=== PATIENT | male | born 1935 ===

== ENCOUNTER 2022-11-11 15:21 | Outpatient (REF) | payer MEDICARE, SELFPAY ==
[2022-11-11 15:15] LABS: HCT 38.8 % (40.0-50.0); HGB 12.8 g/dL (13.5-17.5); MCH 31.4 pg (27.0-33.0); MCV 95 fL (80-95); MPV 9.9 fL (8.0-11.0); Platelet Count 176 10^3/uL (130-400); RBC 4.07 10^6/uL (4.36-5.78); RDW 13.7 % (11.8-14.1); RDW-SD 48.1 fL; WBC 3.88 10^3/uL (4.4-10.8)
--- OUTSIDE RECORDS SUMMARY | 2022-11-11 15:27 | XMS_ITS | Continuity of Care Document ---
Author Name Unknown Organization [facility] Address Unknown Care Team Providers Care Psychological Assistant Name Role Phone Fina CHEN Primary Care Physician DORIS RASMUSSEN Unavailable Unavailable Encounter Date(s): 06/15/22 - 06/15/22 [facility] [address] [place] [address]- [place] Discharge Disposition: Home or Self Care Attending Physician: Fina CHEN MD Admitting Physician: Fina CHEN MD Allergies, Adverse Reactions, Alerts Substance Reaction Severity Status diltiazem Active Seasonal Allergies Active Medications Aleve 220 mg, Oral, q8hr, 0 Refill(s) Start Date: 12/15/11 Status: Ordered aspirin 81 mg oral tablet 81 mg = 1 tab(s), Oral, Daily, 0 Refill(s) Start Date: 10/14/11 Status: Ordered atenolol 50 mg oral tablet 50 mg = 1 tab(s), Oral, Daily Start Date: 10/14/11 Status: Ordered Coumadin 5 mg oral tablet 5 mg = 1 tab(s), Oral, Daily, exc on tue and tuesday takes 2.5mg po daily as of 11/01/11 Start Date: 10/14/11 Status: Ordered Dyazide 1 cap(s), Oral, Daily, 0 Refill(s) Start Date: 12/15/11 Status: Ordered famotidine 20 mg oral tablet 20 mg = 1 tab(s), Oral, Daily Start Date: 10/14/11 Status: Ordered Lipitor 10 mg oral tablet 10 mg = 1 tab(s), Oral, Daily, # 30 tab(s), 0 Refill(s), other reason (Rx) Start Date: 10/15/11 Status: Ordered Problem List Condition Effective Dates Status Health Status Inform ant arthritis(Confirmed) Active AF(Confirmed) Active BPH [Benign prostatic hypertrophy](Confirmed) Active Depressive disorder NEC(Confirmed) Active EDEMA(Confirmed) Active gout(Confirmed) Active sleep apena(Confirmed) Active Hearing loss NOS(Confirmed) Active Hyperlipidemia NOS(Confirmed) Active Mitral regurgitation(Confirmed) Active Murmur of heart, undiagnosed(Confirmed) Active Nephrolithiasis NOS(Confirmed) Active Obesity NOS [mild](Confirmed) Active Procedures Procedure Date Related Diagnosis Body Site Status colonoscopy 03/28/18 Completed colonoscopy 01/30/13 Completed Left heart catherization 1 03/2010 Completed Stress Echo 2 2007 Completed Afib 3 1995 Completed Cardioversion, elective, she ctrical conversion of arrhythmia; external Completed inguinal hernia repair 4 Completed MENISCUS REPAIR Completed S/P arthroscopy Completed tonsilectomy Completed 150% to 70% nonobstructive lesion in the LAD, nonflow-limiting luminal irregularities in the other vessels. 2heart rate 121, no abnormalities, no increased pulmponary hypertension 3cardioverted x2 (3rd cardioversion unsuccessful 1997) 4x 5 laparascopic (2 on R; 3 on L) Results Laboratory List Name Date .Estimated Glomerular Filtration Rate Auto Differential 06/15/22 CBC Auto Diff reflex Manual Diff (CBC W/ AUTO DIFF) 06/15/22 Comprehensive Metabolic Panel (COMPREHEN SIVE METABOLIC PANEL) 06/15/22 Hemoglobin A1c (HGB A1C) 06/15/22 Lipid Panel (LIPID PROFILE) 06/15/22 Microalbumin Level Urine (URINE MICROALB UMIN RANDOM) 06/15/22 Most recent to oldest [Reference Range]: 1 AGAP 10 *NA* (06/15/22 10:57 AM) LDL 33 mg/dL *NA* (06/15/22 10:57 AM) Excretion Ratio [<=29.9 mg/gm Cr] 23.2 m g/gm Cr (06/15/22 10:57 AM) Ldl/Hdl 0.5 mg/dL *NA* (06/15/22 10:57 AM) Chol/Trig 1.20 mg/dL *NA* (06/15/22 10:57 AM) VLDL 21 mg/dL *NA* (06/15/22 10:57 AM) A/G Ratio 1.1 *NA* (06/15/22 10:57 AM) BUN/Creat Ratio 29 *NA* (06/15/22 10:57 AM) RBC [4.50-5.90 x10(6)/mcL] 4.19 x10(6)/m cL *LOW* (06/15/22 10:57 AM) RDW [11.5-14.5 %] 14.2 % (06/15/22 10:57 AM) Sodium Level [136-145 mmol/L] 139 mmol/L (06/15/22 10:57 AM) Total Protein [6.4-8.2 gm/dL] 7.4 gm/dL (06/15/22 10:57 AM) Trig 104 mg/dL *NA* (06/15/22 10:57 AM) AST [15-37 IU/L] 25 IU/L (06/15/22 10:57 AM) Bili Total [0.20-1.00 mg/dL] 0.70 mg/dL (06/15/22 10:57 AM) Chol 122 mg/dL *NA* (06/15/22 10:57 AM) CO2 [21-32 mmol/L] 28 mmol/L (06/15/22 10:57 AM) Urine Creatinine. 168.0 mg/dL *NA* (06/15/22 10:57 AM) Albumin Level [3.4-5.0 gm/dL] 3.9 gm/dL (06/15/22 10:57 AM) Alk Phos [45-117 unit/L] 76 unit/L (06/15/22 10:57 AM) ALT [13-61 IU/L] 14 IU/L (06/15/22 10:57 AM) Hct [41.0-53.0 %] 41.4 % (06/15/22 10:57 AM) HDL 68 mg/dL *NA* (06/15/22 10:57 AM) Hgb [13.9-16.3 gm/dL] 13.4 gm/dL *LOW* (06/15/22 10:57 AM) Hgb A1c [4.2-5.6 %] 5.6 % (06/15/22 10:57 AM) MCH [26.0-34.0 pg] 32.0 pg (06/15/22 10:57 AM) MCHC [31.0-37.0 gm/dL] 32.4 gm/dL (06/15/22 10:57 AM) MCV [80-100 fL] 99 fL (06/15/22 10:57 AM) MPV [9.2-12.7 fL] 9.8 fL (06/15/22 10:57 AM) Glucose Level [74-106 mg/dL] 95 mg/dL (06/15/22 10:57 AM) Platelet [150-350 x10(3)/mcL] 181 x10(3) /mcL (06/15/22 10:57 AM) Potassium Level [3.5-5.1 mmol/L] 4.1 mmo l/L (06/15/22 10:57 AM) WBC [4.5-11.0 x10(3)/mcL] 4.7 x10(3)/mcL (06/15/22 10:57 AM) BUN [7-18 mg/dL] 29 mg/dL *HI* (06/15/22 10:57 AM) Calcium Level [8.5-10.1 mg/dL] 8.6 mg/dL (06/15/22 10:57 AM) Chloride [98-107 mmol/L] 105 mmol/L (06/15/22 10:57 AM) eGFR AA >60 mL/min/1.73 m2 *NA* (06/15/22 10:57 AM) eGFR RIGOBERTO >60 mL/min/1.73 m2 *NA* (06/15/22 10:57 AM) Urine Microalbumin 3.9 mg/dL *NA* (06/15/22 10:57 AM) Neutrophil Absolute [1.50-7.80 x10(3)/mc L] 2.98 x10(3)/mcL (06/15/22 10:57 AM) Lymphocyte Absolute [1.10-4.80 x10(3)/mc L] 1.06 x10(3)/mcL *LOW* (06/15/22 10:57 AM) Monocyte Absolute 0.47 x10(3)/mcL *NA* (06/15/22 10:57 AM) Eosinophil Absolute 0.15 x10(3)/mcL *NA* (06/15/22 10:57 AM) Basophil Absolute 0.03 x10(3)/mcL *NA* (06/15/22 10:57 AM) Imm Gran Absolute 0.01 /mcL *NA* (06/15/22 10:57 AM) NRBC % [0.0-0.2 %] 0.0 % (06/15/22 10:57 AM) Osmol Calculated 283 mOsm/kg *NA* (06/15/22 10:57 AM) Eosinophil Auto [1.0-4.0 %] 3.2 % (06/15/22 10:57 AM) Immature Granulocyte Auto 0 % *NA* (06/15/22 10:57 AM) Lymphocyte Auto [24.0-44.0 %] 22.6 % *LOW* (06/15/22 10:57 AM) Monocyte Auto [2.0-11.0 %] 10.0 % (06/15/22 10:57 AM) Neutrophil Auto [31.0-76.0 %] 63.4 % (06/15/22 10:57 AM) Basophil Auto [0.0-2.0 %] 0.6 % (06/15/22 10:57 AM) Creatinine [0.6-1.3 mg/dL] 1.0 mg/dL (06/15/22 10:57 AM) Social History Social History Type Response Smoking Status Former smoker Sex Male Care Team Care Team Personnel Name: Fina CHEN MD Position: Community Physician Member Role: Primary Care Physician Address: Address: [place] [place] [address]- Care Team Related Persons Name: ELENA PLASCENCIA Address: Home [address] [place] [address] [phone]
[2022-11-11 15:31] LABS: ALT 16 U/L (16-63); AST 35 U/L (15-37); Alkaline Phosphatase 83 U/L (46-116); Anion Gap 6.2 mmol/L (3-11); BUN 38 mg/dL (7-18); Bilirubin, Total 0.7 mg/dL (0.2-1.0); CO2 27.8 mmol/L (21.0-32.0); CREATININE 1.1 mg/dL (0.70-1.30); Calcium 8.8 mg/dL (8.5-10.1); Chloride 105 mmol/L (98-107); Estimated GFR 65.79 (mL/min/1.73m2); Glucose 98 mg/dL (74-106); Potassium 4.2 mmol/L (3.5-5.1); Sodium 139 mmol/L (136-145); Total Protein 7.2 g/dL (6.4-8.2)
== END 2022-11-11 15:22 | disposition home or self-care (01) ==
LOC: NCHCN 15:21
PROVIDERS: Visit Provider Family Medicine
DX: I10 Essential (primary) hypertension (principal); I25.10 Atherosclerotic heart disease of native coronary artery without angina pectoris; I48.91 Unspecified atrial fibrillation
CPT/HCPCS: 80053; 85027

== ENCOUNTER 2023-07-14 18:59 | Outpatient (REF) | payer MEDICARE, OTHER, SELFPAY ==
--- OUTSIDE RECORDS SUMMARY | 2023-07-14 19:01 | XMS_ITS | CCD ---
Author Name Unknown Address [address] [place] [address] [id number] Organization Unknown Address [address] [place] [address] [phone] Care Team Providers Care Corporate Travel Expert Name Role Phone OSIRIS CLARK Attending Physician [phone] LILLY JOHNSON Er Physician [phone] LEVI Terrell Registered Nurse [phone] Vital Signs Vital Sign Value Unit Date/Time Recent/Initial ? BMI (Body Mass Index) 28.73 kg/m^2 11/21/2021 11: 12 Initial VS Weight Measured 178 lbs 11/21/2021 11:12 Ini tial VS Height 66 in 11/21/2021 11:12 Initial VS BSA (Body Surface Area) 1.94 m^2 11/21/2021 1 1:12 Initial VS BP Systolic 101 mmHg 11/21/2021 11:12 Initial VS BP Diastolic 68 mmHg 11/21/2021 11:12 Initia l VS Respiratory Rate 16 bpm 11/21/2021 11:12 In itial VS Heart Rate 88 bpm 11/21/2021 11:12 Initial VS O2 % BldC Oximetry 96 % 11/21/2021 11:12 Initial VS Body Temperature 35.3 degrees 11/21/2021 11:12 In itial VS BP Systolic 107 mmHg 11/21/2021 12:42 Most Re cent VS BP Diastolic 64 mmHg 11/21/2021 12:42 Most R ecent VS Respiratory Rate 16 bpm 11/21/2021 12:[address] Recent VS Heart Rate 75 bpm 11/21/2021 12:42 Most Rec ent VS O2 % BldC Oximetry 96 % 11/21/2021 12:42 Most Recent VS Allergies Allergy Code Allergy Type Reaction Status LISINOPRIL 25040 Drug allergy COUGH Active AVAPRO 678646 Drug allergy SWELLING Active Procedures Unknown or Not Available. History of Immunizations Immunization Code Date Tdap 115 11/21/2021 Problems Problem Code Start Date Resolved Date Status Atrial fibrillation 44727040 Activ e Results Unknown or Not Available. Active Medications Medications Administered During Visit Medication Dose Units Frequency Route Date/Time of Last Dose TETANUS/DIPHT/PERTUS SYR:0.5ML(BOOSTRIX) 0.5 ML X1 IM 11/22/19 12:26 Encounters Encounter Diagnosis Diagnosis Code Start Date Contusion of left lower leg, initial encounter S 8012XA 11/21/2021 Social History Smoking Status Code Start Date End Date Never smoker [id number] Patient Decision Aids Unknown or Not Available. Discharge Instructions You were admitted to [facility] on 11/21/2021 11:04 with a principal diagnosis of Contusion of left lower leg, initial encounter You were discharged from [facility] on 11/21/2021 12:48 Should you have any questions prior to discharge, please contact a member of your healthcare team. If you have left the hospital and have any questions, please contact your primary care physician. Chief Complaint and Reason For Visit Chief Complaint Date of Onset LEG WOUND Function Status Unknown or Not Available. Plan of Care Unknown or Not Available. Referral/Transition of Care Unknown or Not Available.
--- OUTSIDE RECORDS SUMMARY | 2023-07-14 19:01 | XMS_ITS | CCD ---
Author Name Unknown Address [address] [place] [address] [id number] Organization Unknown Address [address] [place] [address] [id number] Care Team Providers Care Cash Register Mechanic Name Role Phone QUE IYER Attending Physician [phone] Vital Signs Unknown or Not Available. Allergies Allergy Code Allergy Type Reaction Status LISINOPRIL 15822 Drug allergy COUGH Active AVAPRO 916679 Drug allergy SWELLING Active Procedures Unknown or Not Available. History of Immunizations Immunization Code Date Tdap 115 11/21/2021 Problems Problem Code Start Date Resolved Date Status Atrial fibrillation 97086047 Activ e Results COMPREHENSIVE METABOLIC PANE L (CMP) - Collect Date/Time: 02/01/2023 09:58 Test Name Code Test Result Test Units Test Ref Rang e GLUCOSE 2345-7 103 mg/dL L=70 H=116 BUN 3094-0 26 mg/dL L=6 H=25 CREATININE 2160-0 0.94 mg/dL L=0.67 H=1.17 SODIUM SERUM 2951-2 141 mmol/L L=136 H=145 POTASSIUM SERUM 2823-3 4.1 mmol/L L=3.4 H=5 .2 CHLORIDE SERUM 2075-0 105 mmol/L L=96 H=110 CARBON DIOXIDE (CO2) 2028-9 27 mmol/L L=22 H=34 ANION GAP 47511-9 8.9 mmol/L CALCIUM SERUM 92529-4 8.8 mg/dL L=8.2 H=10. 2 BILIRUBIN TOTAL 1975-2 0.6 mg/dL L=0.0 H=1 .3 ALK. PHOS. 6768-6 74 U/L L=46 H=116 SGOT (AST) 1920-8 31 U/L L=15 H=37 SGPT (ALT) 1742-6 15 U/L L=12 H=78 TOTAL PROTEIN 2885-2 7.0 gm/dL L=6.0 H=8.0 ALBUMIN 1751-7 3.7 gm/dL L=3.4 H=5.0 AGE 87 years eGFR (non-Afr.Amer.) 85346-8 76 mL/min eGFR (Afr-Honduran) 42003-3 92 mL/min CBC W/ DIFFERENTIAL* - [facility] ct Date/Time: 02/01/2023 09:58 Test Name Code Test Result Test Units Test Ref Rang e WBC 6690-2 3.83 th/cmm L=5.00 H=10.00 NEUT % 58.6 % L=40.0 H=80.0 LYMPH % 24.5 % L=10.0 H=50.0 MONO % 18733-5 9.9 % L=2.0 H=12.0 EOS % 5.7 % L=0.0 H=8.0 BASO % 1.0 % L=0.0 H=3.0 IG % 2514-8 0.3 % L=0.0 H=1.1 NRBC % 83128-4 0.0 % L=0.0 H=0.0 NEUT abs count 751-8 2.2 th/cmm L=1.6 H=8. 4 LYMPH abs count 731-0 0.9 th/cmm L=1.5 H=4 .0 MONO abs count 742-7 0.4 th/cmm L=0.2 H=1. 0 EOS abs count 711-2 0.2 th/cmm L=0.0 H=0.5 BASO abs count 704-7 0.0 th/cmm L=0.0 H=0. 2 IG abs count 49914-8 0.0 th/cmm L=0.0 H=0.1 NRBC abs count 07309-0 0.0 mil/cmm L=0.0 H=0. 0 RBC 789-8 4.03 mil/cmm L=4.30 H=6.20 HEMOGLOBIN 718-7 12.3 gm/dL L=13.0 H=17.0 HEMATOCRIT 4544-3 39 % L=45 H=52 MCV 787-2 96 fL L=82 H=92 MCH 785-6 30.5 pg L=27.0 H=31.0 MCHC 786-4 31.9 % L=32.0 H=36.0 RDW-SD 788-0 46.5 fL L=39.0 H=49.0 PLATELET COUNT 777-3 157 th/cmm L=150 H=45 0 Active Medications Medication Code Dose Units Frequency Route Modificatio n Start Date/Time Cephalexin 500MG Oral Capsule 524995 1 CAPSULE THREE TIMES A DAY ORAL 11/21/2021 12:08 Prescription Detail TAKE 1 CAPSULE ORAL THREE TIMES A DAY Medications Administered During Visit Unknown or Not Available. Encounters Encounter Diagnosis Diagnosis Code Start Date Nutritional anemia, unspecified D539 02/01/2023 Social History Smoking Status Code Start Date End Date Never smoker [id number] Patient Decision Aids Unknown or Not Available. Discharge Instructions You were admitted to [facility] on 02/01/2023 09:51 with a principal diagnosis of Nutritional anemia, unspecified You had the following tests done:CBC W/ DIFFERENTIAL*COMPREHENSIVE METABOLIC PANEL (CMP) You were discharged from [facility] on 02/01/2023 09:51 Should you have any questions prior to discharge, please contact a member of your healthcare team. If you have left the hospital and have any questions, please contact your primary care physician. Chief Complaint and Reason For Visit Unknown or Not Available. Function Status Unknown or Not Available. Plan of Care Unknown or Not Available. Referral/Transition of Care Unknown or Not Available.
--- OUTSIDE RECORDS SUMMARY | 2023-07-14 19:01 | XMS_ITS | CCD ---
Author Name Unknown Address [address] [place] [address] [id number] Organization Unknown Address [address] [place] [address] [phone] Care Team Providers Care Cuff Runner Name Role Phone DOROTEO ARGUETA Attending Physician [phone] Vital Signs Unknown or Not Available. Allergies Allergy Code Allergy Type Reaction Status LISINOPRIL 75883 Drug allergy COUGH Active AVAPRO 719561 Drug allergy SWELLING Active Procedures Unknown or Not Available. History of Immunizations Immunization Code Date Tdap 115 11/21/2021 Problems Problem Code Start Date Resolved Date Status Atrial fibrillation 89409945 Activ e Results BASIC METABOLIC PANEL (BMP) - Collect Date/Time: 11/23/2021 11:04 Test Name Code Test Result Test Units Test Ref Rang e GLUCOSE 2345-7 112 mg/dL L=70 H=116 BUN 3094-0 41 mg/dL L=6 H=25 CREATININE 2160-0 1.08 mg/dL L=0.67 H=1.17 SODIUM SERUM 2951-2 133 mmol/L L=136 H=145 POTASSIUM SERUM 2823-3 4.4 mmol/L L=3.4 H=5 .2 CHLORIDE SERUM 2075-0 98 mmol/L L=96 H=110 CARBON DIOXIDE (CO2) 2028-9 28 mmol/L L=22 H=34 ANION GAP 40534-5 7.1 mmol/L CALCIUM SERUM 52736-7 8.2 mg/dL L=8.2 H=10. 2 AGE 86 years eGFR (non-Afr.Amer.) 96107-1 65 mL/min eGFR (Afr-Libyan) 03760-8 79 mL/min Active Medications Medication Code Dose Units Frequency Route Modificatio n Start Date/Time Cephalexin 500MG Oral Capsule 625440 1 CAPSULE THREE TIMES A DAY ORAL 11/21/2021 12:08 Prescription Detail TAKE 1 CAPSULE ORAL THREE TIMES A DAY Medications Administered During Visit Unknown or Not Available. Encounters Encounter Diagnosis Diagnosis Code Start Date Osteoporosis 04160072 11/23/2021 Social History Smoking Status Code Start Date End Date Never smoker 242198913 Patient Decision Aids Unknown or Not Available. Discharge Instructions You were admitted to [facility] on 11/23/2021 10:43 with a principal diagnosis of Other osteoporosis without current pathological fracture You had the following tests done:BASIC METABOLIC PANEL (BMP) You were discharged from [facility] on 11/23/2021 10:43 Should you have any questions prior to [...]
--- OUTSIDE RECORDS SUMMARY | 2023-07-14 19:02 | XMS_ITS | CCD ---
Author Name Unknown Address [address] [place] [address] [id number] Organization Unknown Address [address] [place] [address] [phone] Care Team Providers Care Art History Instructor Name Role Phone QUE IYER Attending Physician [phone] Vital Signs Unknown or Not Available. Allergies Unknown or Not Available. Procedures Unknown or Not Available. History of Immunizations Immunization Code Date Tdap 115 11/21/2021 Problems Problem Code Start Date Resolved Date Status Atrial fibrillation 23640277 Activ e Results CBC W/ DIFFERENTIAL* - [facility] ct Date/Time: 06/30/2021 11:10 Test Name Code Test Result Test Units Test Ref Rang e WBC 6690-2 4.02 th/cmm L=5.00 H=10.00 NEUT % 61.5 % L=40.0 H=80.0 LYMPH % 22.6 % L=10.0 H=50.0 MONO % 20062-9 10.7 % L=2.0 H=12.0 EOS % 4.2 % L=0.0 H=8.0 BASO % 1.0 % L=0.0 H=3.0 IG % 2514-8 0.0 % L=0.0 H=1.1 NRBC % 77860-8 0.0 % L=0.0 H=0.0 NEUT abs count 751-8 2.5 th/cmm L=1.6 H=8. 4 LYMPH abs count 731-0 0.9 th/cmm L=1.5 H=4 .0 MONO abs count 742-7 0.4 th/cmm L=0.2 H=1. 0 EOS abs count 711-2 0.2 th/cmm L=0.0 H=0.5 BASO abs count 704-7 0.0 th/cmm L=0.0 H=0. 2 IG abs count 90252-7 0.0 th/cmm L=0.0 H=0.1 NRBC abs count 71910-4 0.0 mil/cmm L=0.0 H=0. 0 RBC 789-8 3.88 mil/cmm L=4.30 H=6.20 HEMOGLOBIN 718-7 12.6 gm/dL L=13.0 H=17.0 HEMATOCRIT 4544-3 39 % L=45 H=52 MCV 787-2 100 fL L=82 H=92 MCH 785-6 32.5 pg L=27.0 H=31.0 MCHC 786-4 32.6 % L=32.0 H=36.0 RDW-SD 788-0 46.5 fL L=39.0 H=49.0 PLATELET COUNT 777-3 142 th/cmm L=150 H=45 0 Active Medications Medication Code Dose Units Frequency Route Modificatio n Start Date/Time Cephalexin 500MG Oral Capsule 787864 1 CAPSULE THREE TIMES A DAY ORAL 11/21/2021 12:08 Prescription Detail TAKE 1 CAPSULE ORAL THREE TIMES A DAY Medications Administered During Visit Unknown or Not Available. Encounters Encounter Diagnosis Diagnosis Code Start Date Nutritional anemia 46782808 06/30/2021 Social History Smoking Status Code Start Date End Date Never smoker 495687446 Patient Decision Aids Unknown or Not Available. Discharge Instructions You were admitted to [facility] on 06/30/2021 10:28 with a principal diagnosis of Nutritional anemia, unspecified You had the following tests done:CBC W/ DIFFERENTIAL* You were discharged from [facility] on 06/30/2021 10:28 Should you have any questions prior to [...]
--- OUTSIDE RECORDS SUMMARY | 2023-07-14 19:02 | XMS_ITS | CCD ---
Author Name Unknown Address [address] [place] [address] [id number] Organization Unknown Address [address] [place] [address] [phone] Care Team Providers Care Caddie Name Role Phone WANG VICENTE Attending Physician [phone] WANG VICENTE Rounding (Secondary) Physician [phone] Vital Signs Unknown or Not Available. Allergies Allergy Code Allergy Type Reaction Status LISINOPRIL 94106 Drug allergy COUGH Active AVAPRO 629398 Drug allergy SWELLING Active Procedures Unknown or Not Available. History of Immunizations Immunization Code Date Tdap 115 11/21/2021 Problems Problem Code Start Date Resolved Date Status Atrial fibrillation 11083486 Activ e Results Unknown or Not Available. Active Medications Medication Code Dose Units Frequency Route Modificatio n Start Date/Time Cephalexin 500MG Oral Capsule 070742 1 CAPSULE THREE TIMES A DAY ORAL 11/21/2021 12:08 Prescription Detail TAKE 1 CAPSULE ORAL THREE TIMES A DAY Medications Administered During Visit Unknown or Not Available. Encounters Unknown or Not Available. Social History Smoking Status Code Start Date End Date Never smoker 873251674 Patient Decision Aids Unknown or Not Available. Discharge Instructions You were admitted to [facility] You were discharged from [facility] Should you have any questions prior to [...]
--- OUTSIDE RECORDS SUMMARY | 2023-07-14 19:03 | XMS_ITS | CCD ---
Author Name Unknown Address [address] [place] [address] [id number] Organization Unknown Address [address] [place] [address] [phone] Care Team Providers Care Lace Roller Name Role Phone TACO DICKSON Attending Physician [phone] Vital Signs Unknown or Not Available. Allergies Unknown or Not Available. Procedures Unknown or Not Available. History of Immunizations Immunization Code Date Tdap 115 11/21/2021 Problems Problem Code Start Date Resolved Date Status Atrial fibrillation 79085696 Activ e Results BUN (UREA NITROGEN) - [facility] t Date/Time: 03/31/2021 10:32 Test Name Code Test Result Test Units Test Ref Rang e BUN 3094-0 28 mg/dL L=6 H=25 CREATININE SERUM - Collect D ate/Time: 03/31/2021 10:32 Test Name Code Test Result Test Units Test Ref Rang e CREATININE 2160-0 0.83 mg/dL L=0.67 H=1.17 AGE 86 years eGFR (non-Afr.Amer.) 18334-6 88 mL/min eGFR (Afr-Botswanan) 94760-7 107 mL/min Active Medications Medication Code Dose Units Frequency Route Modificatio n Start Date/Time Cephalexin 500MG Oral Capsule 215348 1 CAPSULE THREE TIMES A DAY ORAL 11/21/2021 12:08 Prescription Detail TAKE 1 CAPSULE ORAL THREE TIMES A DAY Medications Administered During Visit Unknown or Not Available. Encounters Encounter Diagnosis Diagnosis Code Start Date Primary malignant neoplasm of prostate 55254499 03/31/2021 Social History Smoking Status Code Start Date End Date Never smoker 535274835 Patient Decision Aids Unknown or Not Available. Discharge Instructions You were admitted to [facility] on 03/31/2021 10:30 with a principal diagnosis of Malignant neoplasm of prostate You had the following tests done:BUN (UREA NITROGEN)CREATININE SERUM You were discharged from [facility] on 03/31/2021 10:30 Should you have any questions prior to [...]
--- OUTSIDE RECORDS SUMMARY | 2023-07-14 19:03 | XMS_ITS | CCD ---
Author Name Unknown Address [address] [place] [address] [phone] Organization Unknown Address [address] [place], [place] [id number] Care Team Providers Care Home Health Billing Specialist Name Role Phone HERNAN PORRAS Attending Physician [phone] Vital Signs Unknown or Not Available. Allergies Allergy Code Allergy Type Reaction Status PENICILLINS (CLASS) 20741 Drug allergy Act linda LISINOPRIL 30165 Drug allergy INTOLERANT Active polyester {Clinical monitori ng unavailable} 0 Allergy to substance RASH Active CODEINE 2670 Drug allergy Active METOPROLOL 6918 Drug allergy UNKNOWN Active OXYCODONE 7804 Drug allergy Active SULFA (sulfonamide) 0 Drug allergy Act linda DILTIAZEM 3443 Drug allergy Active POLYESTER LINER 0 Drug allergy Active TAMSULOSIN 22543 Drug allergy Active Procedures Unknown or Not Available. History of Immunizations Unknown or Not Available. Problems Problem Code Start Date Resolved Date Status Atrial fibrillation 38908329 Activ e Coronary artery disease 49806227 A ctive Personal history of cancer of prostate 750376489 Active Diverticulosis 993346180 Active Restless leg syndrome 95072352 Act linda Obstructive sleep apnea 78151617 A ctive Hypercholesterolemia 45454552 Acti ve Loss of memory 05369214 Active Actinic keratosis 052001588 Active Chronic low back pain 903396935 Act linda Cervical disc disease 748867363 Act linda Cholelithiasis 565208528 Active Gout 65606974 Active Obesity 540914498 Active Hard of hearing 06725402 Active L2 fracture, sequela 017914977 Acti ve High cholesterol 49328183 Active STEMI 328497515 Active Results Unknown or Not Available. Active Medications Unknown or Not Available. Medications Administered During Visit Unknown or Not Available. Encounters Encounter Diagnosis Diagnosis Code Start Date Encounter for other specified aftercare Z5189 03/24/2023 Social History Smoking Status Code Start Date End Date Never smoker 401013437 Patient Decision Aids Unknown or Not Available. Discharge Instructions You were admitted to [facility] on 03/24/2023 13:44 with a principal diagnosis of Encounter for other specified aftercare You were discharged from [facility] on 03/24/2023 10:44 Should you have any questions prior to [...]
--- OUTSIDE RECORDS SUMMARY | 2023-07-14 19:03 | XMS_ITS | CCD ---
Author Name Unknown Address [address] [place] [address] [id number] Organization Unknown Address [address] [place] [address] [id number] Care Team Providers Care President Financial Institution Name Role Phone HARRY BALL MD Attending Physician [phone] Vital Signs Unknown or Not Available. Allergies Unknown or Not Available. Procedures Unknown or Not Available. History of Immunizations Immunization Code Date Tdap 115 11/21/2021 Problems Problem Code Start Date Resolved Date Status Atrial fibrillation [id number] Activ e Results Unknown or Not Available. Active Medications Medication Code Dose Units Frequency Route Modificatio n Start Date/Time Cephalexin 500MG Oral Capsule 875454 1 CAPSULE THREE TIMES A DAY ORAL 11/21/2021 12:08 Prescription Detail TAKE 1 CAPSULE ORAL THREE TIMES A DAY Medications Administered During Visit Unknown or Not Available. Encounters Encounter Diagnosis Diagnosis Code Start Date Unspecified fracture of T5-T 6 vertebra, initial encounter for closed fracture [id number] 03/31/2021 Social History Smoking Status Code Start Date End Date Never smoker 562267515 Patient Decision Aids Unknown or Not Available. Discharge Instructions You were admitted to [facility] on 03/31/2021 00:02 with a principal diagnosis of Unspecified fracture of T5-T6 vertebra, initial encounter for closed fracture You were discharged from [facility] on 03/31/2021 00:02 Should you have any questions prior to [...]
--- OUTSIDE RECORDS SUMMARY | 2023-07-14 19:04 | XMS_ITS | CCD ---
Author Name Unknown Address [address] [place] [address] [id number] Organization Unknown Address [address] [place], [place] [id number] Care Team Providers Care Animal Anatomist Name Role Phone HERNAN PORRAS Attending Physician [phone] Vital Signs Unknown or Not Available. Allergies Allergy Code Allergy Type Reaction Status PENICILLINS (CLASS) 47968 Drug allergy Act linda LISINOPRIL 97901 Drug allergy INTOLERANT Active METOPROLOL 6918 Drug allergy UNKNOWN Active OXYCODONE 7804 Drug allergy Active SULFA (sulfonamide) 0 Drug allergy Act linda Procedures Unknown or Not Available. History of Immunizations Unknown or Not Available. Problems Problem Code Start Date Resolved Date Status Atrial fibrillation 62873962 Activ e Coronary artery disease 73907775 A ctive Personal history of cancer of prostate 786878687 Active Diverticulosis 879336345 Active Restless leg syndrome 38802652 Act linda Obstructive sleep apnea 86217132 A ctive Hypercholesterolemia 54770035 Acti ve Loss of memory 30967378 Active Actinic keratosis 747791465 Active Chronic low back pain 495154732 Act linda Cervical disc disease 673377994 Act linda Cholelithiasis 411960101 Active Gout 49044630 Active Obesity 477119031 Active Hard of hearing 85333873 Active L2 fracture, sequela 929259635 Acti ve High cholesterol 36163929 Active STEMI 433242820 Active Results Unknown or Not Available. Active Medications Unknown or Not Available. Medications Administered During Visit Unknown or Not Available. Encounters Encounter Diagnosis Diagnosis Code Start Date Aftercare [id number] 11/17/2022 Social History Smoking Status Code Start Date End Date Never smoker 852431561 Patient Decision Aids Unknown or Not Available. Discharge Instructions You were admitted to on 11/17/2022 11:19 with a principal diagnosis of Encounter for other specified aftercare You were discharged from on 11/17/2022 17:22 Should you have any questions prior to [...]
--- OUTSIDE RECORDS SUMMARY | 2023-07-14 19:04 | XMS_ITS | CCD ---
Author Name Unknown Address [address] [place] [address] [id number] Organization Unknown Address [address] [place], [place] [phone] Care Team Providers Care Safety Equipment Tester Name Role Phone EMERSON FERREIRA Attending Physician [phone] Vital Signs Vital Sign Value Unit Date/Time Recent/Initial ? BMI (Body Mass Index) 32.89 kg/m^2 12/21/2022 13: 20 Initial VS Weight Measured 210 lbs 12/21/2022 13:20 Ini tial VS Height 67 in 12/21/2022 13:20 Initial VS BSA (Body Surface Area) 2.12 m^2 12/21/2022 1 3:20 Initial VS BP Systolic 109 mmHg 12/27/2022 10:08 Initial VS BP Diastolic 68 mmHg 12/27/2022 10:08 Initia l VS Respiratory Rate 19 bpm 12/27/2022 10:08 In itial VS Heart Rate 60 bpm 12/27/2022 10:08 Initial VS O2 % BldC Oximetry 94 % 12/27/2022 10:08 Initial VS Body Temperature 36.3 degrees 12/27/2022 10:08 In itial VS Allergies Allergy Code Allergy Type Reaction Status PENICILLINS (CLASS) 47570 Drug allergy Act linda LISINOPRIL 38309 Drug allergy INTOLERANT Active polyester {Clinical monitori ng unavailable} 0 Allergy to substance RASH Active CODEINE 2670 Drug allergy Active METOPROLOL 6918 Drug allergy UNKNOWN Active OXYCODONE 7804 Drug allergy Active SULFA (sulfonamide) 0 Drug allergy Act linda DILTIAZEM 3443 Drug allergy Active POLYESTER LINER 0 Drug allergy Active TAMSULOSIN 13723 Drug allergy Active Procedures Procedure Code Procedure Type Date Slitting, Prepuce, Dorsal/La teral (Sep Proc); Except 55727 CPT 12/27/2022 History of Immunizations Unknown or Not Available. Problems Problem Code Start Date Resolved Date Status Atrial fibrillation 03870872 Activ e Coronary artery disease 43803863 A ctive Personal history of cancer of prostate 652869120 Active Diverticulosis 382830105 Active Restless leg syndrome 39114268 Act linda Obstructive sleep apnea 25859818 A ctive Hypercholesterolemia 99452899 Acti ve Loss of memory 92586359 Active Actinic keratosis 597615440 Active Chronic low back pain 839319636 Act linda Cervical disc disease 401740897 Act linda Cholelithiasis 404694791 Active Gout 03695789 Active Obesity 732726285 Active Hard of hearing 69904432 Active L2 fracture, sequela 985900730 Acti ve High cholesterol 38862490 Active STEMI 267114256 Active Results BASIC METABOLIC PANEL (BMP) - Collect Date/Time: 12/27/2022 08:38 Test Name Code Test Result Test Units Test Ref Rang e GLUCOSE 2345-7 106 mg/dL L=70 H=116 BUN 3094-0 27 mg/dL L=6 H=25 CREATININE 2160-0 0.93 mg/dL L=0.67 H=1.17 SODIUM SERUM 2951-2 135 mmol/L L=136 H=145 POTASSIUM SERUM 2823-3 3.6 mmol/L L=3.4 H=5 .2 CHLORIDE SERUM 2075-0 101 mmol/L L=96 H=110 CARBON DIOXIDE (CO2) 2028-9 28 mmol/L L=22 H=34 ANION GAP 47799-9 5.9 mmol/L CALCIUM SERUM 20887-6 8.6 mg/dL L=8.2 H=10. 2 AGE 87 years eGFR (non-Afr.Amer.) 34154-6 77 mL/min eGFR (Afr-Kosovan) 23030-8 93 mL/min CBC W/ DIFFERENTIAL* - Colle ct Date/Time: 12/27/2022 08:38 Test Name Code Test Result Test Units Test Ref Rang e WBC 6690-2 4.39 th/cmm L=5.00 H=10.00 NEUT % 29.1 % L=40.0 H=80.0 LYMPH % 23.7 % L=10.0 H=50.0 MONO % 54705-8 45.8 % L=2.0 H=12.0 EOS % 0.7 % L=0.0 H=8.0 BASO % 0.2 % L=0.0 H=3.0 IG % 2514-8 0.5 % L=0.0 H=1.1 NRBC % 52061-8 0.0 % L=0.0 H=0.0 NEUT abs count 751-8 1.3 th/cmm L=1.6 H=8. 4 LYMPH abs count 731-0 1.0 th/cmm L=1.5 H=4 .0 MONO abs count 742-7 2.0 th/cmm L=0.2 H=1. 0 EOS abs count 711-2 0.0 th/cmm L=0.0 H=0.5 BASO abs count 704-7 0.0 th/cmm L=0.0 H=0. 2 IG abs count 81076-0 0.0 th/cmm L=0.0 H=0.1 NRBC abs count 57056-8 0.0 mil/cmm L=0.0 H=0. 0 RBC 789-8 3.98 mil/cmm L=4.30 H=6.20 HEMOGLOBIN 718-7 11.8 gm/dL L=13.0 H=17.0 HEMATOCRIT 4544-3 36 % L=45 H=52 MCV 787-2 91 fL L=82 H=92 MCH 785-6 29.6 pg L=27.0 H=31.0 MCHC 786-4 32.7 % L=32.0 H=36.0 RDW-SD 788-0 46.3 fL L=39.0 H=49.0 PLATELET COUNT 777-3 41 th/cmm L=150 H=45 0 Active Medications Medications Administered During Visit Medication Dose Units Frequency Route Date/Time of Last Dose LACTATED RINGERS 1000ML 1 EA X1 12/27/2022 08:52 MIDAZOLAM INJ SDV: 2MG/2ML 0.5 MG X1 IVP 12/27/2022 08:51 MIDAZOLAM INJ SDV: 2MG/2ML 0.5 MG X1 IVP 12/27/2022 08:52 ACETAMINOPHEN INJ IVPB: 1000MG/100ML 1000 MG PRN IN PACU X1 12/27/2022 10 :11 Encounters Encounter Diagnosis Diagnosis Code Start Date Phimosis N471 12/27/2022 Social History Smoking Status Code Start Date End Date Never smoker 851555408 Patient Decision Aids Unknown or Not Available. Discharge Instructions You were admitted to on 12/27/2022 07:19 with a principal diagnosis of Phimosis You had the following procedures done:Slitting, Prepuce, Dorsal/Lateral (Sep Proc); Except [place] You had the following tests done:BASIC METABOLIC PANEL (BMP)CBC W/ DIFFERENTIAL* You were discharged from on 12/27/2022 10:48 Should you have any questions prior to discharge, please contact a member of your healthcare team. If you have left the hospital and have any questions, please contact your primary care physician. Chief Complaint and Reason For Visit Chief Complaint Date of Onset DORSAL SLIT OF FORESKIN 30MIN OP Function Status Unknown or Not Available. Plan of Care Unknown or Not Available. Referral/Transition of Care Unknown or Not Available.
--- OUTSIDE RECORDS SUMMARY | 2023-07-14 19:04 | XMS_ITS | CCD ---
Author Name Unknown Address [address] [place] [address] [phone] Organization Unknown Address [address] [place], [place] [phone] Care Team Providers Care Digital Coordinator Name Role Phone HERNAN PORRAS Attending Physician [phone] Vital Signs Unknown or Not Available. Allergies Allergy Code Allergy Type Reaction Status PENICILLINS (CLASS) 59880 Drug allergy Act linda LISINOPRIL 89036 Drug allergy INTOLERANT Active METOPROLOL 6918 Drug allergy UNKNOWN Active OXYCODONE 7804 Drug allergy Active SULFA (sulfonamide) 0 Drug allergy Act linda Procedures Unknown or Not Available. History of Immunizations Unknown or Not Available. Problems Problem Code Start Date Resolved Date Status Atrial fibrillation 79105672 Activ e Coronary artery disease 34527869 A ctive Personal history of cancer of prostate 417112164 Active Diverticulosis 536504148 Active Restless leg syndrome 75403104 Act linda Obstructive sleep apnea 95084433 A ctive Hypercholesterolemia 59499404 Acti ve Loss of memory 93356751 Active Actinic keratosis 321396663 Active Chronic low back pain 508698407 Act linda Cervical disc disease 660537085 Act linda Cholelithiasis 969626806 Active Gout 58931432 Active Obesity 814771580 Active Hard of hearing 22048796 Active L2 fracture, sequela 679687832 Acti ve High cholesterol 08086063 Active STEMI 156505989 Active Results Unknown or Not Available. Active Medications Unknown or Not Available. Medications Administered During Visit Unknown or Not Available. Encounters Encounter Diagnosis Diagnosis Code Start Date Encounter for other specified aftercare Z5189 09/29/2022 Social History Smoking Status Code Start Date End Date Never smoker 595420973 Patient Decision Aids Unknown or Not Available. Discharge Instructions You were admitted to [facility] on 09/29/2022 11:33 with a principal diagnosis of Encounter for other specified aftercare You were discharged from [facility] on 09/29/2022 11:07 Should you have any questions prior to [...]
--- OUTSIDE RECORDS SUMMARY | 2023-07-14 19:04 | XMS_ITS | CCD ---
Author Name Unknown Address [address] [place] [address] [id number] Organization Unknown Address [address] [place], [place] [id number] Care Team Providers Care General Accountant Name Role Phone HERNAN PORRAS Attending Physician [phone] Vital Signs Unknown or Not Available. Allergies Allergy Code Allergy Type Reaction Status PENICILLINS (CLASS) 14399 Drug allergy Act linda LISINOPRIL 77887 Drug allergy INTOLERANT Active METOPROLOL 6918 Drug allergy UNKNOWN Active OXYCODONE 7804 Drug allergy Active SULFA (sulfonamide) 0 Drug allergy Act linda Procedures Unknown or Not Available. History of Immunizations Unknown or Not Available. Problems Problem Code Start Date Resolved Date Status Atrial fibrillation 17815511 Activ e Coronary artery disease 98563693 A ctive Personal history of cancer of prostate 754499488 Active Diverticulosis 883265787 Active Restless leg syndrome 41989194 Act linda Obstructive sleep apnea 66952099 A ctive Hypercholesterolemia 98522826 Acti ve Loss of memory 58012627 Active Actinic keratosis 925396342 Active Chronic low back pain 039483336 Act linda Cervical disc disease 838486439 Act linda Cholelithiasis 807551426 Active Gout 51838771 Active Obesity 997208829 Active Hard of hearing 80020805 Active L2 fracture, sequela 955613873 Acti ve High cholesterol 45654098 Active STEMI 419944522 Active Results Unknown or Not Available. Active Medications Unknown or Not Available. Medications Administered During Visit Unknown or Not Available. Encounters Encounter Diagnosis Diagnosis Code Start Date Encounter for screening for malignant neoplasm of respiratory organs Z122 10/09/2021 Social History Smoking Status Code Start Date End Date Never smoker 063951871 Patient Decision Aids Unknown or Not Available. Discharge Instructions You were admitted to [facility] on 10/09/2021 14:46 with a principal diagnosis of Encounter for screening for malignant neoplasm of respiratory organs You were discharged from [facility] on 10/09/2021 14:46 Should you have any questions prior to discharge, please contact a member of your healthcare team. If you have left the hospital and have any questions, please contact your primary care physician. Chief Complaint and Reason For Visit Chief Complaint Date of Onset FORMER SMOKING Function Status Unknown or Not Available. Plan of Care Unknown or Not Available. Referral/Transition of Care Unknown or Not Available.
--- OUTSIDE RECORDS SUMMARY | 2023-07-14 19:04 | XMS_ITS | CCD ---
Author Name Unknown Address [address] [place] [address] [phone] Organization Unknown Address [address] [place], [place] [phone] Care Team Providers Care Hand Miter Operator Name Role Phone HERNAN PORRAS Attending Physician [phone] Vital Signs Unknown or Not Available. Allergies Allergy Code Allergy Type Reaction Status PENICILLINS (CLASS) 13633 Drug allergy Act linda LISINOPRIL 56317 Drug allergy INTOLERANT Active polyester {Clinical monitori ng unavailable} 0 Allergy to substance RASH Active CODEINE 2670 Drug allergy Active METOPROLOL 6918 Drug allergy UNKNOWN Active OXYCODONE 7804 Drug allergy Active SULFA (sulfonamide) 0 Drug allergy Act linda DILTIAZEM 3443 Drug allergy Active POLYESTER LINER 0 Drug allergy Active TAMSULOSIN 57597 Drug allergy Active Procedures Unknown or Not Available. History of Immunizations Unknown or Not Available. Problems Problem Code Start Date Resolved Date Status Atrial fibrillation 75742041 Activ e Coronary artery disease 23364226 A ctive Personal history of cancer of prostate 537539425 Active Diverticulosis 738156996 Active Restless leg syndrome 55557718 Act linda Obstructive sleep apnea 90862890 A ctive Hypercholesterolemia 80204140 Acti ve Loss of memory 17321092 Active Actinic keratosis 479418636 Active Chronic low back pain 868767636 Act linda Cervical disc disease 784357083 Act linda Cholelithiasis 213216228 Active Gout 45089121 Active Obesity 606963820 Active Hard of hearing 68937682 Active L2 fracture, sequela 898253105 Acti ve High cholesterol 31015135 Active STEMI 033369608 Active Results Unknown or Not Available. Active Medications Unknown or Not Available. Medications Administered During Visit Unknown or Not Available. Encounters Encounter Diagnosis Diagnosis Code Start Date Encounter for other specified aftercare Z5189 12/29/2022 Social History Smoking Status Code Start Date End Date Never smoker 684496807 Patient Decision Aids Unknown or Not Available. Discharge Instructions You were admitted to [facility] on 12/29/2022 10:45 with a principal diagnosis of Encounter for other specified aftercare You were discharged from [facility] on 12/29/2022 16:33 Should you have any questions prior to [...]
--- OUTSIDE RECORDS SUMMARY | 2023-07-14 19:04 | XMS_ITS | CCD ---
Author Name Unknown Address [address] [place] [address] [id number] Organization Unknown Address [address] [place], [place] [phone] Care Team Providers Care Aircraft Powertrain Repairer Name Role Phone HERNAN PORRAS Attending Physician [phone] Vital Signs Unknown or Not Available. Allergies Allergy Code Allergy Type Reaction Status PENICILLINS (CLASS) 99236 Drug allergy Act linda LISINOPRIL 90116 Drug allergy INTOLERANT Active polyester {Clinical monitori ng unavailable} 0 Allergy to substance RASH Active CODEINE 2670 Drug allergy Active METOPROLOL 6918 Drug allergy UNKNOWN Active OXYCODONE 7804 Drug allergy Active SULFA (sulfonamide) 0 Drug allergy Act linda DILTIAZEM 3443 Drug allergy Active POLYESTER LINER 0 Drug allergy Active TAMSULOSIN 57365 Drug allergy Active Procedures Unknown or Not Available. History of Immunizations Unknown or Not Available. Problems Problem Code Start Date Resolved Date Status Atrial fibrillation 29983738 Activ e Coronary artery disease 57290562 A ctive Personal history of cancer of prostate 866485155 Active Diverticulosis 476064363 Active Restless leg syndrome 41691545 Act linda Obstructive sleep apnea 35374870 A ctive Hypercholesterolemia 84810046 Acti ve Loss of memory 71398895 Active Actinic keratosis 755468213 Active Chronic low back pain 974468184 Act linda Cervical disc disease 377488294 Act linda Cholelithiasis 151173727 Active Gout 96446072 Active Obesity 065980267 Active Hard of hearing 46312556 Active L2 fracture, sequela 485048562 Acti ve High cholesterol 51975463 Active STEMI 944781633 Active Results Unknown or Not Available. Active Medications Unknown or Not Available. Medications Administered During Visit Unknown or Not Available. Encounters Encounter Diagnosis Diagnosis Code Start Date Encounter for other specified aftercare Z5189 02/09/2023 Social History Smoking Status Code Start Date End Date Never smoker 595986906 Patient Decision Aids Unknown or Not Available. Discharge Instructions You were admitted to [facility] on 02/09/2023 10:53 with a principal diagnosis of Encounter for other specified aftercare You were discharged from [facility] on 02/09/2023 12:59 Should you have any questions prior to [...]
--- OUTSIDE RECORDS SUMMARY | 2023-07-14 19:04 | XMS_ITS | CCD ---
Author Name Unknown Address [address] [place] [address] [phone] Organization Unknown Address [address] [place], [place] [phone] Care Team Providers Care Production Team Advisor Name Role Phone WANG VICENTE Attending Physician [phone] WANG VICENTE Rounding (Secondary) Physician [phone] Vital Signs Unknown or Not Available. Allergies Allergy Code Allergy Type Reaction Status PENICILLINS (CLASS) 35814 Drug allergy Act linda LISINOPRIL 79299 Drug allergy INTOLERANT Active METOPROLOL 6918 Drug allergy UNKNOWN Active OXYCODONE 7804 Drug allergy Active SULFA (sulfonamide) 0 Drug allergy Act linda Procedures Unknown or Not Available. History of Immunizations Unknown or Not Available. Problems Problem Code Start Date Resolved Date Status Atrial fibrillation 27531090 Activ e Coronary artery disease 18329427 A ctive Personal history of cancer of prostate 121008057 Active Diverticulosis 380056606 Active Restless leg syndrome 52511582 Act linda Obstructive sleep apnea 57444238 A ctive Hypercholesterolemia 47445458 Acti ve Loss of memory 03640851 Active Actinic keratosis 304732478 Active Chronic low back pain 518108708 Act linda Cervical disc disease 417402928 Act linda Cholelithiasis 436949440 Active Gout 82575775 Active Obesity 793752603 Active Hard of hearing 41592002 Active L2 fracture, sequela 080385866 Acti ve High cholesterol 85233509 Active STEMI 427304743 Active Results Unknown or Not Available. Active Medications Unknown or Not Available. Medications Administered During Visit Unknown or Not Available. Encounters Encounter Diagnosis Diagnosis Code Start Date Permanent atrial fibrillation I4821 Social History Smoking Status Code Start Date End Date Never smoker 991237126 Patient Decision Aids Unknown or Not Available. Discharge Instructions You were admitted to [facility] on 09/11/2021 06:59 with a principal diagnosis of Permanent atrial fibrillation You were discharged from [facility] on 09/11/2021 00:00 Should you have any questions prior to [...]
--- OUTSIDE RECORDS SUMMARY | 2023-07-14 19:04 | XMS_ITS | CCD ---
Author Name Unknown Address [address] [place] [address] [id number] Organization Unknown Address [address] [place], [place] [phone] Care Team Providers Care Sports Book Writer Name Role Phone HERNAN PORRAS Attending Physician [phone] Vital Signs Unknown or Not Available. Allergies Allergy Code Allergy Type Reaction Status PENICILLINS (CLASS) 97151 Drug allergy Act linda LISINOPRIL 99657 Drug allergy INTOLERANT Active polyester {Clinical monitori ng unavailable} 0 Allergy to substance RASH Active CODEINE 2670 Drug allergy Active METOPROLOL 6918 Drug allergy UNKNOWN Active OXYCODONE 7804 Drug allergy Active SULFA (sulfonamide) 0 Drug allergy Act linda DILTIAZEM 3443 Drug allergy Active POLYESTER LINER 0 Drug allergy Active TAMSULOSIN 29516 Drug allergy Active Procedures Unknown or Not Available. History of Immunizations Unknown or Not Available. Problems Problem Code Start Date Resolved Date Status Atrial fibrillation 52499991 Activ e Coronary artery disease 91464592 A ctive Personal history of cancer of prostate 864762184 Active Diverticulosis 373965789 Active Restless leg syndrome 21595352 Act linda Obstructive sleep apnea 62610915 A ctive Hypercholesterolemia 89573025 Acti ve Loss of memory 05723742 Active Actinic keratosis 653380333 Active Chronic low back pain 161716272 Act linda Cervical disc disease 034667600 Act linda Cholelithiasis 316164838 Active Gout 66144927 Active Obesity 224795420 Active Hard of hearing 00599928 Active L2 fracture, sequela 519661248 Acti ve High cholesterol 82714185 Active STEMI 376459977 Active Results Unknown or Not Available. Active Medications Unknown or Not Available. Medications Administered During Visit Unknown or Not Available. Encounters Encounter Diagnosis Diagnosis Code Start Date Aftercare [id number] 04/28/2023 Social History Smoking Status Code Start Date End Date Never smoker 822288854 Patient Decision Aids Unknown or Not Available. Discharge Instructions You were admitted to [facility] on 04/28/2023 11:43 with a principal diagnosis of Encounter for other specified aftercare You were discharged from [facility] on 04/28/2023 12:15 Should you have any questions prior to [...]
--- OUTSIDE RECORDS SUMMARY | 2023-07-14 19:05 | XMS_ITS | Patient Health Record ---
Author Name Unknown Organization [facility] Address [address] [place] [address] Care Team Providers Care [employer] Name Role Phone Spike Loaiza Primary Care Provider Shea Oakes Unavailable [phone] ALLERGIES Allergen (clinical drug ingredient) Drug/Non Drug Allergy documented on EMR Reaction Allergy Type Onset Date Status diltiazem Diltiazem HCl Unknown Drug Allergy 02/23/2021 Ac tive lisinopril Lisinopril Unknown Drug Allergy 02/23/2021 Acti ve Metoprolol Succinate Unknown Drug Allergy 2020 Active oxycodone Oxycodone HCl Unknown Drug Allergy 02/23/2021 Ac tive penicillin V Penicillin V Potassium Unknown Drug Allergy 0 02/23/2021 Active REASON FOR REFERRAL No Information MEDICATIONS Medication SIG (Take, Route, Frequency, Duration) Notes Start Date End Date Status Famotidine 20 MG 1 tablet at bedtime as needed Orally Once a day Active Toprol XL 50 MG 1 tablet Orally Once a day Active Acyclovir 400 MG 1 tablet Orally Twic e a day Active Allopurinol 100 MG 1 tablet Orally Once a day Active Senna Concentrate 8.6 MG 2 tablets at be dtime as needed Orally Once a day for 30 day(s) Active Atorvastatin Calcium 20 MG 1 tablet Oral ly Once a day for 30 day(s) Active Warfarin Sodium 5 MG 1 tablet Orally Onc e a day Active Nitroglycerin 0.4 MG as directed Sublingual Active Aspir-81 Active Tamsulosin HCl 0.4 MG 1 capsule Orally O nce a day Active Triamterene-HCTZ 37.5-25 MG 1 tablet in the morning Orally Once a day Active IMMUNIZATIONS Vaccine Route Administration Date Status Comme nts Covid19 Unknown 09/01/2020 Administered Covid19 Unknown 09/29/2020 Administered Influenza, high dose seasonal Unknown 05/06/2021 Admini stered Influenza, seasonal, injecta ble, preservative free, 3 yrs and above Unknown 04/14/2020 Administered Pneumococcal conjugate PCV 13 Unknown 06/05/2015 Admini stered SOCIAL HISTORY Tobacco Use: Social History Observation Description Date Details (start date - stop date) Never Smoker NA - NA Sex Assigned At : Social History Observation Description Sex Assigned At Unknown Tobacco Use/Smoking: Question Answer Notes Are you a nonsmoker PROBLEMS Problem Type ICD Code Onset Dates Problem Status W/U Status Risk SNOMED Code Notes Problem Malignant neoplasm o f prostate (C61) Active confirmed Adenocarcinom a of prostate (611786750) Problem Morbid (severe) obesity due to excess calories (E66.01) Active confirmed Morbid obe sity (221273854) Problem Essential (primary) hypertension (I10) Active confirmed Essential hypertension (81912003) Problem Urge incontinence (N39.41) Active confirmed Urge incontinen ce of urine (37576941) Problem Hydrocele, unspecified (N43.3) Active confirmed Acquired hydrocele (350203914) Problem Phimosis (N47.1) Active confirmed Phimo sis (887049599) Problem Rash and other nonspecific skin eruption (R21) Active confirmed Eruption (027720062) Problem 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) Active confirmed Familial hypercholesterolemia (856443690) Problem 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) Active confirmed Lower urina ry tract symptoms due to benign prostatic hypertrophy (46630126489836) Problem Chronic atrial fibrillation, unspecified (I48.20) Active confirmed Chronic atrial fibrillation (577584577) VITAL SIGNS Blood pressure diastolic 70 mm Hg 02/17/2023 Height 67 in 02/17/2023 Blood pressure systolic 130 mm Hg 02/17/2023 Weight 206 lbs 02/17/2023 BMI 32.26 kg/m2 02/17/2023 PROCEDURES Procedure Date Ordered Date Performed Result Body Sit e - PVR (Post-Void Residual Volume) 12/02/2022 N/ A - PVR (Post-Void Residual Volume) 02/17/2023 02/17/2023 N/ A Encounters Encounter Location Date Provider Diagnosis [facility] [address] [address] 12/02/2022 She[facility] Benign prostatic hyperplasia with lower urinary tract symptoms N40.1 and Phimosis N47.1 [facility] [address] [address] 12/02/2022 [facility] [address] [address] 12/27/2022 Shea Mendoza Phimosis N47.1 [facility] [address] [address] 12/28/2022 [facility] [address] [address] 12/28/2022 [facility] [address] [address] 02/17/2023 Shea Mendoza Phimosis N47.1 ASSESSMENTS Encounter Date Diagnosis Assessment Notes Treatment Notes Treatment Clinical Notes 12/02/2022 Phimosis (ICD-10 - N47.1) 12/02/2022 Benign prostatic hyperplasia with lower urinary tract symptoms (ICD-10 - N40.1) Pt. reports having major concerns reguarding incontinents. states he has no painful urination or burning sensation. Pt has stopped taking tamsulosin qd as perscribed. Pt was taking Urivarx unperscribed for roughly 9 months qd. Pt could not recall the dosage of this medication. Pt has since stopped taking this medication due to memory loss and bad dreams which he credits to the Urivarx. MD aware. 12/27/2022 Phimosis (ICD-10 - N47.1) 02/17/2023 Phimosis (ICD-10 - N47.1) Had dorsal slit done 12/2022. He was found that when urinating he's spraying. C/O no control of urination with activity. BMs are hard and he bleeds from the rectum after. PLAN OF TREATMENT No Information Insurance Providers Payer Name Payer Address Payer Phone Subscriber Number Group Number Insured Name Patient Relationship to Insured Coverage Start Date Coverage End Date [employer] [place] [address] [place] [address] [id number] DORIS PLASCENCIA Self - patient is the insured [facility] [address] [place] [address] [phone] [id number] DORIS PLASCENCIA Self - patient is the insured 0 MEDICAL (GENERAL) HISTORY Medical History History ICD Code Inguinal Hernia Degeneration of Spine Actinic Keratosis Osteoarthritis Lung Anomaly Osteopenia Traumatic Crush Fracture of Vertebra Chronic Afib Obstructive Sleep Apnea Diverticulosis of Large Intestine Prostate Cancer Restless Leg Right Hydrocele BPH with urge incontinence Surgical History Surgery Date(Month/Year) tonsils prostate seeds 2003 cardiac stent L Cheek 11/2020 R Cheek 01/2021 Circumcision. At age 26 Dorsal Slit 12/2022 Hospitalization History Reason Date(Month/Year) Prostate Tonsils Circumcision
--- OUTSIDE RECORDS SUMMARY | 2023-07-14 19:05 | XMS_ITS | CCD ---
Author Name Unknown Address [address], [place] [id number] Organization Unknown Address [address], [place] [address] Care Team Providers Care Communication Specialist Name Role Phone IVETT BARTHOLOMEW Attending Physician [phone] JENNIFER MCARTHUR Er Physician 0 [phone] YARA Cabezas Registered Nurse [phone] Vital Signs Vital Sign Value Unit Date/Time Recent/Initial ? BMI (Body Mass Index) 31.47 kg/m^2 06/26/2023 09: 27 Initial VS Weight Measured 195 lbs 06/26/2023 09:27 Ini tial VS Height 66 in 06/26/2023 09:27 Initial VS BSA (Body Surface Area) 2.03 m^2 06/26/2023 0 9:27 Initial VS BP Systolic 135 mmHg 06/26/2023 09:27 Initial VS BP Diastolic 95 mmHg 06/26/2023 09:27 Initia l VS Respiratory Rate 16 bpm 06/26/2023 09:27 In itial VS Heart Rate 82 bpm 06/26/2023 09:27 Initial VS O2 % BldC Oximetry 97 % 06/26/2023 09:27 Initial VS Body Temperature 35.8 degrees 06/26/2023 09:27 In itial VS BP Systolic 146 mmHg 06/26/2023 12:40 Most Re cent VS BP Diastolic 97 mmHg 06/26/2023 12:40 Most R ecent VS Respiratory Rate 16 bpm 06/26/2023 12:[address] Recent VS Heart Rate 63 bpm 06/26/2023 12:40 Most Rec ent VS O2 % BldC Oximetry 97 % 06/26/2023 12:40 Most Recent VS Allergies Allergy Code Allergy Type Reaction Status PENICILLINS (CLASS) 48818 Drug allergy Act linda LISINOPRIL 57462 Drug allergy INTOLERANT Active polyester {Clinical monitori ng unavailable} 0 Allergy to substance RASH Active CODEINE 2670 Drug allergy Active METOPROLOL 6918 Drug allergy UNKNOWN Active OXYCODONE 7804 Drug allergy Active SULFA (sulfonamide) 0 Drug allergy Act linda DILTIAZEM 3443 Drug allergy Active POLYESTER LINER 0 Drug allergy Active TAMSULOSIN 99387 Drug allergy Active Procedures Unknown or Not Available. History of Immunizations Unknown or Not Available. Problems Problem Code Start Date Resolved Date Status Atrial fibrillation 01508169 Activ e Coronary artery disease 43335174 A ctive Personal history of cancer of prostate 452387249 Active Diverticulosis 612087069 Active Restless leg syndrome 22597841 Act linda Obstructive sleep apnea 14691277 A ctive Hypercholesterolemia 22079008 Acti ve Loss of memory 25750361 Active Actinic keratosis 743125335 Active Chronic low back pain 948168720 Act linda Cervical disc disease 639885050 Act linda Cholelithiasis 760833717 Active Gout 46328476 Active Obesity 440706557 Active Hard of hearing 68977023 Active L2 fracture, sequela 194796335 Acti ve High cholesterol 79659018 Active STEMI 297674892 Active Results COMPREHENSIVE METABOLIC PANE L (CMP) - Collect Date/Time: 06/26/2023 10:22 Test Name Code Test Result Test Units Test Ref Rang e GLUCOSE 2345-7 98 mg/dL L=70 H=116 BUN 3094-0 23 mg/dL L=6 H=25 CREATININE 2160-0 0.92 mg/dL L=0.67 H=1.17 SODIUM SERUM 2951-2 138 mmol/L L=136 H=145 POTASSIUM SERUM 2823-3 4.0 mmol/L L=3.4 H=5 .2 CHLORIDE SERUM 2075-0 101 mmol/L L=96 H=110 CARBON DIOXIDE (CO2) 2028-9 30 mmol/L L=22 H=34 ANION GAP 97738-8 7.3 mmol/L CALCIUM SERUM 21674-2 8.8 mg/dL L=8.2 H=10. 2 BILIRUBIN TOTAL 1975-2 1.0 mg/dL L=0.0 H=1 .3 ALK. PHOS. 6768-6 92 U/L L=46 H=116 SGOT (AST) 1920-8 25 U/L L=15 H=37 SGPT (ALT) 1742-6 9 U/L L=12 H=78 TOTAL PROTEIN 2885-2 7.8 gm/dL L=6.0 H=8.0 ALBUMIN 1751-7 4.0 gm/dL L=3.4 H=5.0 AGE 88 years eGFR (non-Afr.Amer.) 38088-0 78 mL/min eGFR (Afr-Swedish) 93481-6 94 mL/min LACTIC ACID - Collect Date/T rebeca: 06/26/2023 10:22 Test Name Code Test Result Test Units Test Ref Rang e LACTIC ACID 81529-6 1.3 mmol/L L=0.7 H=2.1 LIPASE* NEW - Collect Date/T rebeca: 06/26/2023 10:22 Test Name Code Test Result Test Units Test Ref Rang e LIPASE. 15 U/L L=16 H=77 CBC W/ DIFFERENTIAL* - Colle ct Date/Time: 06/26/2023 10:22 Test Name Code Test Result Test Units Test Ref Rang e WBC 6690-2 3.02 th/cmm L=5.00 H=10.00 NEUT % 40.4 % L=40.0 H=80.0 LYMPH % 31.8 % L=10.0 H=50.0 MONO % 88958-9 25.8 % L=2.0 H=12.0 EOS % 1.0 % L=0.0 H=8.0 BASO % 0.7 % L=0.0 H=3.0 IG % 2514-8 0.3 % L=0.0 H=1.1 NRBC % 63394-7 0.0 % L=0.0 H=0.0 NEUT abs count 751-8 1.2 th/cmm L=1.6 H=8. 4 LYMPH abs count 731-0 1.0 th/cmm L=1.5 H=4 .0 MONO abs count 742-7 0.8 th/cmm L=0.2 H=1. 0 EOS abs count 711-2 0.0 th/cmm L=0.0 H=0.5 BASO abs count 704-7 0.0 th/cmm L=0.0 H=0. 2 IG abs count 30545-8 0.0 th/cmm L=0.0 H=0.1 NRBC abs count 20678-3 0.0 mil/cmm L=0.0 H=0. 0 RBC 789-8 4.21 mil/cmm L=4.30 H=6.20 HEMOGLOBIN 718-7 12.4 gm/dL L=13.0 H=17.0 HEMATOCRIT 4544-3 38 % L=45 H=52 MCV 787-2 91 fL L=82 H=92 MCH 785-6 29.5 pg L=27.0 H=31.0 MCHC 786-4 32.4 % L=32.0 H=36.0 RDW-SD 788-0 47.8 fL L=39.0 H=49.0 PLATELET COUNT 777-3 49 th/cmm L=150 H=45 0 Active Medications Unknown or Not Available. Medications Administered During Visit Unknown or Not Available. Encounters Encounter Diagnosis Diagnosis Code Start Date Right lower quadrant pain 959689560 2022 Social History Smoking Status Code Start Date End Date Never smoker 173364281 Patient Decision Aids Unknown or Not Available. Discharge Instructions You were admitted to [facility] on 06/26/2023 09:15 with a principal diagnosis of Right lower quadrant pain You had the following tests done:CBC W/ DIFFERENTIAL*COMPREHENSIVE METABOLIC PANEL (CMP)LACTIC ACIDLIPASE* NEW You were discharged from [facility] on 06/26/2023 12:56 Should you have any questions prior to discharge, please contact a member of your healthcare team. If you have left the hospital and have any questions, please contact your primary care physician. Chief Complaint and Reason For Visit Chief Complaint Date of Onset SEVERE LOWER RIGHT ABDOMINAL PAIN Function Status Unknown or Not Available. Plan of Care Unknown or Not Available. Referral/Transition of Care Unknown or Not Available.
--- OUTSIDE RECORDS SUMMARY | 2023-07-14 19:05 | XMS_ITS | CCD ---
Author Name Unknown Address [address] [place] [id number] Organization Unknown Address [address], [place] [address] Care Team Providers Care Track Watchman Name Role Phone HERNAN PORRAS Attending Physician [phone] Vital Signs Unknown or Not Available. Allergies Allergy Code Allergy Type Reaction Status PENICILLINS (CLASS) 97592 Drug allergy Act linda LISINOPRIL 33827 Drug allergy INTOLERANT Active polyester {Clinical monitori ng unavailable} 0 Allergy to substance RASH Active CODEINE 2670 Drug allergy Active METOPROLOL 6918 Drug allergy UNKNOWN Active OXYCODONE 7804 Drug allergy Active SULFA (sulfonamide) 0 Drug allergy Act linda DILTIAZEM 3443 Drug allergy Active POLYESTER LINER 0 Drug allergy Active TAMSULOSIN 02185 Drug allergy Active Procedures Unknown or Not Available. History of Immunizations Unknown or Not Available. Problems Problem Code Start Date Resolved Date Status Atrial fibrillation 48510159 Activ e Coronary artery disease 18462007 A ctive Personal history of cancer of prostate 924095405 Active Diverticulosis 233054098 Active Restless leg syndrome 10651930 Act linda Obstructive sleep apnea 40811160 A ctive Hypercholesterolemia 90869747 Acti ve Loss of memory 69485392 Active Actinic keratosis 691980191 Active Chronic low back pain 665771836 Act linda Cervical disc disease 527673206 Act linda Cholelithiasis 940706241 Active Gout 72675562 Active Obesity 593560920 Active Hard of hearing 90984528 Active L2 fracture, sequela 391637360 Acti ve High cholesterol 03707753 Active STEMI 088064078 Active Results Unknown or Not Available. Active Medications Unknown or Not Available. Medications Administered During Visit Unknown or Not Available. Encounters Encounter Diagnosis Diagnosis Code Start Date Encounter for other specified aftercare [id number] 06/09/2023 Social History Smoking Status Code Start Date End Date Never smoker 247574977 Patient Decision Aids Unknown or Not Available. Discharge Instructions You were admitted to [facility] on 06/09/2023 13:20 with a principal diagnosis of Encounter for other specified aftercare You were discharged from [facility] on 06/09/2023 13:50 Should you have any questions prior to [...]
--- OUTSIDE RECORDS SUMMARY | 2023-07-14 19:05 | XMS_ITS | CCD ---
Author Name Unknown Address [address] [place] [id number] Organization Unknown Address [address], [place] [address] Care Team Providers Care Dark Room Attendant Name Role Phone RAMONA ESPINOZA Attending Physician [phone] Vital Signs Unknown or Not Available. Allergies Allergy Code Allergy Type Reaction Status PENICILLINS (CLASS) 18758 Drug allergy Act linda LISINOPRIL 72552 Drug allergy INTOLERANT Active polyester {Clinical monitori ng unavailable} 0 Allergy to substance RASH Active CODEINE 2670 Drug allergy Active METOPROLOL 6918 Drug allergy UNKNOWN Active OXYCODONE 7804 Drug allergy Active SULFA (sulfonamide) 0 Drug allergy Act linda DILTIAZEM 3443 Drug allergy Active POLYESTER LINER 0 Drug allergy Active TAMSULOSIN 66353 Drug allergy Active Procedures Unknown or Not Available. History of Immunizations Unknown or Not Available. Problems Problem Code Start Date Resolved Date Status Atrial fibrillation 79977103 Activ e Coronary artery disease 54897187 A ctive Personal history of cancer of prostate 691497156 Active Diverticulosis 881779052 Active Restless leg syndrome 41745385 Act linda Obstructive sleep apnea 87957982 A ctive Hypercholesterolemia 63838627 Acti ve Loss of memory 25943692 Active Actinic keratosis 526671132 Active Chronic low back pain 818454379 Act linda Cervical disc disease 222783923 Act linda Cholelithiasis 719537531 Active Gout 58814678 Active Obesity 735488450 Active Hard of hearing 67827703 Active L2 fracture, sequela 486684178 Acti ve High cholesterol 97669784 Active STEMI 005764033 Active Results Unknown or Not Available. Active Medications Unknown or Not Available. Medications Administered During Visit Unknown or Not Available. Encounters Unknown or Not Available. Social History Smoking Status Code Start Date End Date Never smoker 379800070 Patient Decision Aids Unknown or Not Available. Discharge Instructions You were admitted to [facility] on 07/06/2023 10:59 You were discharged from [facility] on 07/06/2023 10:59 Should you have any questions prior to discharge, please contact a member of your healthcare team. If you have left the hospital and have any questions, please contact your primary care physician. Chief Complaint and Reason For Visit Chief Complaint Date of Onset PANCREATIC MASS Function Status Unknown or Not Available. Plan of Care Unknown or Not Available. Referral/Transition of Care Unknown or Not Available.
[2023-07-14 21:42] LABS: Abs Immature Grans 0.01 10^3/uL (0.0-0.06); Absolute Basophil Count 0.04 10^3/uL (0.0-0.2); Absolute Eosinophil Count 0.16 10^3/uL (0.0-0.7); Absolute Lymphocyte Count 1.23 10^3/uL (1.2-3.4); Absolute Monocyte Count 0.52 10^3/uL (0.1-0.8); Absolute Neutrophil Count 2.95 10^3/uL (1.2-6.7); Basophils % 0.8; Eosinophils % 3.3; HCT 39.5 % (40.0-50.0); Immature Grans % 0.2; Lymphocytes % 25.1; MCH 30.8 pg (27.0-33.0); MCHC 32.9 % (32.0-36.0); MCV 94 fL (80-95); MPV 9.8 fL (8.0-11.0); Monocytes % 10.6; Platelet Count 191 10^3/uL (130-400); RBC 4.22 10^6/uL (4.36-5.78); RDW 13.4 % (11.8-14.1); RDW-SD 46.1 fL; WBC 4.91 10^3/uL (4.4-10.8)
[2023-07-14 22:24] LABS: Vitamin D 25 Total 45.3 ng/mL (30-100)
[2023-07-14 22:26] LABS: ALT 15 U/L (16-63); AST 27 U/L (15-37); Albumin 3.7 g/dL (3.4-5.0); Alkaline Phosphatase 85 U/L (46-116); Anion Gap 5.3 mmol/L (3-11); BUN 31 mg/dL (7-18); CO2 29.7 mmol/L (21.0-32.0); CREATININE 1.2 mg/dL (0.70-1.30); Calcium 8.6 mg/dL (8.5-10.1); Chloride 103 mmol/L (98-107); Estimated GFR 58.89 (mL/min/1.73m2); Glucose 108 mg/dL (74-106); Sodium 138 mmol/L (136-145); Total Protein 7.5 g/dL (6.4-8.2); Vitamin B12 480 pg/mL (193-986)
[2023-07-14 22:29] LABS: Folate > 20.0 ng/mL (8.6-20.0)
== END 2023-07-14 19:00 | disposition home or self-care (01) ==
LOC: NCHCN 18:59
PROVIDERS: Visit Provider Family Medicine
DX: F03.90 Unspecified dementia, unspecified severity, without behavioral disturbance, psychotic disturbance, mood disturbance, and anxiety (principal); R26.89 Other abnormalities of gait and mobility; E55.9 Vitamin D deficiency, unspecified
CPT/HCPCS: 80053; 82306; 82607; 82746; 85025

== ENCOUNTER 2024-09-17 17:57 | Outpatient (REF) | payer MEDICARE, OTHER, SELFPAY ==
--- NOTE | 2024-09-17 16:07 | SKI_PTH ---
PATIENT: Parker Lr LOC: [facility] U#:[id number] AGE/SX: 89/M ROOM: RE09/17/[address]: Mattie Giraldo : 1935 BED: DIS: 09/17/2024 SPEC #: [id number] RECD: 09/18/24 12:38 STATUS: ZOIE REQ #: [id number] BART: 09/17/24 16:[address]: Mattie Giraldo DEPT: Surgical Specimen RECD BY: Ariadna Quinonez ENTERED: 09/18/24 12:39 SP TYPE: RAVINDRA CALDWELL DR: Unknown,Unknown Tissues: 1 - SKIN BIOPSY(SHAVE/PUNCH) Procedures: SKIN LEVEL 4 Comments: [id number]
[2024-09-17 21:15] LABS: Abs Immature Grans 0.01 10^3/uL (0.0-0.06); Absolute Basophil Count 0.04 10^3/uL (0.0-0.2); Absolute Eosinophil Count 0.13 10^3/uL (0.0-0.7); Absolute Lymphocyte Count 1.33 10^3/uL (1.2-3.4); Absolute Monocyte Count 0.57 10^3/uL (0.1-0.8); Basophils % 0.7 %; Eosinophils % 2.2 %; HCT 38.9 % (40.0-50.0); HGB 12.7 g/dL (13.5-17.5); Immature Grans % 0.2 %; MCH 30.3 pg (27.0-33.0); MCHC 32.6 % (32.0-36.0); MCV 93 fL (80-95); MPV 9.4 fL (8.0-11.0); Monocytes % 9.9 %; Platelet Count 158 10^3/uL (130-400); RBC 4.19 10^6/uL (4.36-5.78); RDW 13.5 % (11.8-14.1); RDW-SD 46.3 fL; WBC 5.78 10^3/uL (4.4-10.8)
[2024-09-17 21:27] LABS: ALT 13 U/L (16-63); AST 26 U/L (15-37); Albumin 3.9 g/dL (3.4-5.0); Alkaline Phosphatase 78 U/L (46-116); Anion Gap 6.7 mmol/L (3-11); BUN 24 mg/dL (7-18); Bilirubin, Total 0.7 mg/dL (0.2-1.0); CO2 28.3 mmol/L (21.0-32.0); CREATININE 1.2 mg/dL (0.70-1.30); Calcium 8.6 mg/dL (8.5-10.1); Chloride 105 mmol/L (98-107); Estimated GFR 58.53 (mL/min/1.73m2); Glucose 99 mg/dL (74-106); Potassium 4.3 mmol/L (3.5-5.1); Sodium 140 mmol/L (136-145); Total Protein 7.1 g/dL (6.4-8.2)
== END 2024-09-17 17:58 | disposition home or self-care (01) ==
LOC: NCHCN 17:57
PROVIDERS: Visit Provider Family Medicine
DX: R22.1 Localized swelling, mass and lump, neck (principal); B96.89 Other specified bacterial agents as the cause of diseases classified elsewhere
CPT/HCPCS: 80053; 85025; 88305